=== PATIENT | female | born 1945 | race Caucasian/White ===

== ENCOUNTER 2018-06-13 20:38 | Inpatient (IN) | payer MEDICARE, OTHER ==
[~2018-06-13] VITALS: Ht 157.5 cm; Wt 69.4 kg
[2018-06-13] MEDS ORDERED: MIRT15TA PO (21:00)
[2018-06-13] MEDS ORDERED: RISP1TAB7 PO (21:00)
[2018-06-13] MEDS ORDERED: DOCU100C36 PO (21:00)
[2018-06-13] MEDS ORDERED: LORA-258 PO (21:00)
[2018-06-13] MEDS ORDERED: MAGN400O6 PO (21:00)
[2018-06-13] MEDS ORDERED: TRAM50TA2 PO (21:00)
[2018-06-13] MEDS ORDERED: ACET325T53 PO (21:00)
[2018-06-13] MEDS ORDERED: TEMA7.5C PO (21:00)
[2018-06-13] MEDS ORDERED: MAG-55 PO (21:00)
[2018-06-13] MEDS ORDERED: SENN-167 PO (21:00)
[2018-06-13] MEDS ORDERED: ALEN70TA45 PO (21:00)
[2018-06-13] MEDS ORDERED: LORA10TA7 PO (21:00)
[2018-06-13 21:08] LABS: BASOPHILS # (AUTO) 0.1 K/uL (0.0-8.0); EOSINOPHILS # (AUTO) 0.2 K/uL (0.0-0.7); EOSINOPHILS % (AUTO) 3.7 % (0.0-7.0); HEMATOCRIT 43.6 % (31.2-41.9); LYMPHOCYTES # (AUTO) 2.1 K/uL (20.0-40.0); LYMPHOCYTES % (AUTO) 31.8 % (20.5-51.5); MEAN CORPUSCULAR HEMOGLOBIN 32.8 uug (24.7-32.8); MEAN CORPUSCULAR HGB CONC 34 g/dL (32.3-35.6); MEAN CORPUSCULAR VOLUME 95.5 fL (75.5-95.3); MONOCYTES # (AUTO) 0.7 K/uL (2.0-10.0); MONOCYTES % (AUTO) 10.2 % (0.0-11.0); NEUTROPHILS # (AUTO) 3.5 K/uL (1.8-8.9); NEUTROPHILS % (AUTO) 53.3 % (38.5-71.5); PLATELET COUNT (AUTO) 228 K/uL (179-408); RED BLOOD CELL COUNT(AUTO) 4.57 MIL/uL (3.63-4.92); WHITE BLOOD COUNT (AUTO) 6.6 K/uL (3.8-11.8)
[2018-06-13 21:22] LABS: *AMPHETAMINE, URINE NEGATIVE (NEGATIVE); *BARBITURATE, URINE NEGATIVE (NEGATIVE); *CANNABINOID, URINE NEGATIVE (NEGATIVE); *COCCAINE, URINE NEGATIVE (NEGATIVE); *OPIATE, URINE NEGATIVE (NEGATIVE); *PHENCYCLIDINE SCREEN,URINE NEGATIVE (NEGATIVE)
[2018-06-13 21:30] LABS: ETHANOL < 3 MG/DL (0-0)
[2018-06-13 21:32] LABS: THYROID STIMULATING HORMONE 5.216 mIU/mL (0.358-3.740)
[2018-06-13 21:50] LABS: CARBON DIOXIDE 26 mmol/L (21-32); CHLORIDE 103 mmol/L (98-107); GLUCOSE 97 mg/dL (74-106); POTASSIUM 3.9 mmol/L (3.5-5.1); UREA NITROGEN, BLOOD 17 mg/dL (7-18)
[2018-06-13 21:56] LABS: ALANINE AMINOTRANSFERASE 23 U/L (14-59); ALKALINE PHOSPHATASE 79 U/L (50-136); ASPARTATE AMINOTRANSFERASE 11 U/L (15-37); BILIRUBIN,DIRECT < 0.1 mg/dL (0.0-0.2); BILIRUBIN,TOTAL 0.2 mg/dL (0.2-1.0); TOTAL PROTEIN, SERUM 7.5 g/dL (6.4-8.2)
[2018-06-13 21:58] LABS: ACETAMINOPHEN < 2.0 ug/mL (10-30)
[2018-06-14] VITALS: BP 128/78
[2018-06-14] MEDS ORDERED: ACETAMINOPHEN 325 MG TABLET PO PRN (01:00)
[2018-06-14] MEDS ORDERED: TEMAZEPAM 7.5 MG CAPSULE PO PRN ×2 (01:00→19:30)
[2018-06-14] MEDS ORDERED: MAG HYDROX/AL HYDROX/SIMETH 30 ML LIQUID UDC PO PRN (01:00)
[2018-06-14] MEDS ORDERED: MAGNESIUM HYDROXIDE 30 ML LIQUID UDC PO PRN (01:00)
[2018-06-14 02:25] VITALS: BP 128/78
[2018-06-14 11:15] VITALS: BP 102/64
[2018-06-14] MEDS ORDERED: Medication Not On Formulary EA (Mag Hydrox/Al Hydrox/Simeth (Maalox Max Strength Susp) 3 PO PRN (11:30)
[2018-06-14 15:18] VITALS: BP 103/68
[2018-06-14 15:43] LABS: *BILIRUBIN,URIN NEGATIVE (NEGATIVE); *BLOOD, URINE NEGATIVE (NEGATIVE); *CLARITY,URINE SLIGHTLY CLOUDY (CLEAR); *COLOR,URINE YELLOW (YELLOW); *KETONES,URINE NEGATIVE (NEGATIVE); *PROTEIN,URINE NEGATIVE (NEGATIVE); *UROBILINOGEN,URINE 0.2 E.U./dl (NORMAL); LEUKOCYTE ESTERASE ,URINE 2+ (NEGATIVE); NITRITE, URINE NEGATIVE (NEGATIVE); PH,URINE 6.5 (5.0-8.0); UGLUCOSE NEGATIVE (NEGATIVE)
[2018-06-14 15:56] LABS: BACTERIA,URINE FEW /HPF (NONE SEEN); RBC,URINE 0-3 /HPF (0-3); SQUAMOUS EPITHELIAL CELL,UR FEW /HPF (NONE SEEN); WBC,URINE 20-50 /HPF (0-3)
[2018-06-14] MEDS: DOCUSATE SODIUM 100 MG CAPSULE PO SCH (16:18)
[2018-06-14] MEDS ORDERED: LORAZEPAM 0.5 MG TABLET PO PRN (19:30)
[2018-06-14] MEDS: risperiDONE 1 MG TABLET PO SCH (19:53)
[2018-06-14 20:07] VITALS: BP 106/67
[2018-06-14] MEDS: MIRTAZAPINE 15 MG TABLET PO SCH (20:35)
[2018-06-14] MEDS: ATORVASTATIN 10 MG TABLET PO SCH (20:35)
[2018-06-14] MEDS: SENNOSIDES 1 TABLET PO SCH (20:37)
[2018-06-15] MEDS: LORATADINE 10 MG TABLET PO SCH (08:48)
[2018-06-15] MEDS: risperiDONE 1 MG TABLET PO SCH ×2 (08:49→17:01)
[2018-06-15 08:51] VITALS: BP 111/67
[2018-06-15] MEDS: DOCUSATE SODIUM 100 MG CAPSULE PO SCH ×2 (08:52→17:00)
[2018-06-15] MEDS: TRAMADOL HCL 50 MG TABLET PO PRN (10:30)
[2018-06-15] MEDS: CEPHALEXIN MONOHYDRATE 500 MG CAPSULE PO SCH ×2 (13:08→21:33)
[2018-06-15 15:36] VITALS: BP 118/83
[2018-06-15 19:14] VITALS: BP 104/59
[2018-06-15] MEDS: MIRTAZAPINE 15 MG TABLET PO SCH (20:00)
[2018-06-15] MEDS: ATORVASTATIN 10 MG TABLET PO SCH (20:00)
[2018-06-15] MEDS: SENNOSIDES 1 TABLET PO SCH (20:02)
[2018-06-15] MEDS: BENZOCAINE/MENTH/CETYLPYRD LOZENGE MM PRN (21:33)
[2018-06-16 03:26] VITALS: BP 110/68
[2018-06-16] MEDS: CEPHALEXIN MONOHYDRATE 500 MG CAPSULE PO SCH ×3 (05:01→21:18)
[2018-06-16] MEDS: BENZOCAINE/MENTH/CETYLPYRD LOZENGE MM PRN (06:39)
[2018-06-16 08:00] VITALS: BP 100/70
[2018-06-16] MEDS: risperiDONE 1 MG TABLET PO SCH ×2 (08:43→16:09)
[2018-06-16] MEDS: LORATADINE 10 MG TABLET PO SCH (08:43)
[2018-06-16] MEDS: DOCUSATE SODIUM 100 MG CAPSULE PO SCH ×2 (08:43→16:06)
[2018-06-16 11:48] VITALS: BP 113/74
[2018-06-16] MEDS: LORAZEPAM 0.5 MG TABLET PO PRN (14:55)
[2018-06-16 15:52] VITALS: BP 121/72
[2018-06-16 19:46] VITALS: BP 103/70
[2018-06-16] MEDS: MIRTAZAPINE 15 MG TABLET PO SCH (20:20)
[2018-06-16] MEDS: ATORVASTATIN 10 MG TABLET PO SCH (20:20)
[2018-06-16] MEDS: SENNOSIDES 1 TABLET PO SCH (20:26)
[2018-06-17] MEDS: TRAMADOL HCL 50 MG TABLET PO PRN ×2 (03:06→17:23)
[2018-06-17] MEDS: BENZOCAINE/MENTH/CETYLPYRD LOZENGE MM PRN (03:08)
[2018-06-17] MEDS: CEPHALEXIN MONOHYDRATE 500 MG CAPSULE PO SCH ×3 (05:08→21:36)
[2018-06-17 07:57] VITALS: BP 103/68
[2018-06-17] MEDS: risperiDONE 1 MG TABLET PO SCH ×2 (08:04→16:04)
[2018-06-17] MEDS: DOCUSATE SODIUM 100 MG CAPSULE PO SCH ×2 (08:05→16:04)
[2018-06-17] MEDS: LORATADINE 10 MG TABLET PO SCH (08:05)
[2018-06-17] MEDS: LORAZEPAM 0.5 MG TABLET PO PRN (10:53)
[2018-06-17 11:19] VITALS: BP 101/68
[2018-06-17 15:36] VITALS: BP 102/58
[2018-06-17 20:08] VITALS: BP 94/62
[2018-06-17] MEDS: MIRTAZAPINE 15 MG TABLET PO SCH (20:39)
[2018-06-17] MEDS: SENNOSIDES 1 TABLET PO SCH (20:39)
[2018-06-17] MEDS: ATORVASTATIN 10 MG TABLET PO SCH (20:39)
[2018-06-18] MEDS: BENZOCAINE/MENTH/CETYLPYRD LOZENGE MM PRN ×3 (00:39→21:34)
[2018-06-18] MEDS: CEPHALEXIN MONOHYDRATE 500 MG CAPSULE PO SCH (06:11)
[2018-06-18 06:14] LABS: BASOPHILS # (AUTO) 0.1 K/uL (0.0-8.0); BASOPHILS % (AUTO) 0.7 % (0.0-2.0); EOSINOPHILS # (AUTO) 0.3 K/uL (0.0-0.7); EOSINOPHILS % (AUTO) 2.9 % (0.0-7.0); HEMATOCRIT 40.1 % (31.2-41.9); HEMOGLOBIN 13.9 g/dL (10.9-14.3); LYMPHOCYTES % (AUTO) 20.3 % (20.5-51.5); MEAN CORPUSCULAR HEMOGLOBIN 32.5 uug (24.7-32.8); MEAN CORPUSCULAR HGB CONC 35 g/dL (32.3-35.6); MEAN CORPUSCULAR VOLUME 93.4 fL (75.5-95.3); MONOCYTES # (AUTO) 0.9 K/uL (2.0-10.0); MONOCYTES % (AUTO) 9.6 % (0.0-11.0); NEUTROPHILS # (AUTO) 6.5 K/uL (1.8-8.9); NEUTROPHILS % (AUTO) 66.5 % (38.5-71.5); PLATELET COUNT (AUTO) 217 K/uL (179-408); RED BLOOD CELL COUNT(AUTO) 4.29 MIL/uL (3.63-4.92); WHITE BLOOD COUNT (AUTO) 9.7 K/uL (3.8-11.8)
[2018-06-18] MEDS ORDERED: ALENDRONATE SODIUM 70 MG TABLET PO SCH (06:30)
[2018-06-18 06:31] LABS: ALANINE AMINOTRANSFERASE 19 U/L (14-59); ALKALINE PHOSPHATASE 72 U/L (50-136); ASPARTATE AMINOTRANSFERASE 12 U/L (15-37); BILIRUBIN,TOTAL 0.6 mg/dL (0.2-1.0); CARBON DIOXIDE 26 mmol/L (21-32); CHLORIDE 104 mmol/L (98-107); CREATININE 0.9 mg/dL (0.6-1.3); GLUCOSE 97 mg/dL (74-106); MAGNESIUM 1.8 mg/dL (1.8-2.4); PHOSPHOROUS 3.5 mg/dL (2.5-4.9); TOTAL PROTEIN, SERUM 6.7 g/dL (6.4-8.2); UREA NITROGEN, BLOOD 16 mg/dL (7-18)
[2018-06-18 06:36] VITALS: BP 116/66
[2018-06-18] MEDS: DOCUSATE SODIUM 100 MG CAPSULE PO SCH ×2 (09:00→16:20)
[2018-06-18] MEDS: LORATADINE 10 MG TABLET PO SCH (09:03)
[2018-06-18] MEDS: risperiDONE 1 MG TABLET PO SCH ×2 (09:03→16:20)
[2018-06-18 11:16] VITALS: BP 109/75
[2018-06-18] MEDS: LEVOFLOXACIN 500 MG TABLET PO SCH (11:42)
[2018-06-18 15:24] VITALS: BP 129/85
[2018-06-18] MEDS: TRAMADOL HCL 50 MG TABLET PO PRN (17:27)
[2018-06-18 20:00] VITALS: BP 114/66
[2018-06-18] MEDS: MIRTAZAPINE 15 MG TABLET PO SCH (20:36)
[2018-06-18] MEDS: ATORVASTATIN 10 MG TABLET PO SCH (20:36)
[2018-06-18] MEDS: SENNOSIDES 1 TABLET PO SCH (20:39)
[2018-06-19] MEDS: TRAMADOL HCL 50 MG TABLET PO PRN ×2 (03:42→17:10)
[2018-06-19 08:00] VITALS: BP 100/72
[2018-06-19] MEDS: risperiDONE 1 MG TABLET PO SCH ×2 (09:01→17:10)
[2018-06-19] MEDS: LORATADINE 10 MG TABLET PO SCH (09:01)
[2018-06-19] MEDS: DOCUSATE SODIUM 100 MG CAPSULE PO SCH ×2 (09:01→17:10)
[2018-06-19] MEDS: LEVOFLOXACIN 500 MG TABLET PO SCH (11:53)
[2018-06-19] MEDS: GUAIFENESIN/DEXTROMETHORPHAN TAB.SR.12H PO SCH ×2 (13:06→21:06)
[2018-06-19 16:00] VITALS: BP 113/57
[2018-06-19 20:16] VITALS: BP 108/68
[2018-06-19] MEDS: SENNOSIDES 1 TABLET PO SCH (21:00)
[2018-06-19] MEDS: ATORVASTATIN 10 MG TABLET PO SCH (21:04)
[2018-06-19] MEDS: MIRTAZAPINE 15 MG TABLET PO SCH (21:04)
[2018-06-20] MEDS: TRAMADOL HCL 50 MG TABLET PO PRN ×2 (07:00→16:59)
[2018-06-20 07:30] VITALS: BP 97/64
[2018-06-20] MEDS: GUAIFENESIN/DEXTROMETHORPHAN TAB.SR.12H PO SCH ×2 (08:40→20:50)
[2018-06-20] MEDS: LORATADINE 10 MG TABLET PO SCH (08:40)
[2018-06-20] MEDS: risperiDONE 1 MG TABLET PO SCH ×2 (08:40→16:47)
[2018-06-20] MEDS: DOCUSATE SODIUM 100 MG CAPSULE PO SCH ×2 (08:40→16:47)
[2018-06-20] MEDS: LORAZEPAM 0.5 MG TABLET PO PRN (09:32)
[2018-06-20] MEDS: LEVOFLOXACIN 500 MG TABLET PO SCH (12:23)
[2018-06-20 16:57] VITALS: BP 100/78
[2018-06-20] MEDS: SENNOSIDES 1 TABLET PO SCH (20:49)
[2018-06-20] MEDS: ATORVASTATIN 10 MG TABLET PO SCH (20:50)
[2018-06-20 20:51] VITALS: BP 101/70
[2018-06-20] MEDS ORDERED: MIRTAZAPINE 15 MG TABLET PO SCH (21:00)
[2018-06-21] MEDS: TRAMADOL HCL 50 MG TABLET PO PRN (06:46)
[2018-06-21 07:30] VITALS: BP 103/73
[2018-06-21] MEDS: LORATADINE 10 MG TABLET PO SCH (08:24)
[2018-06-21] MEDS: DOCUSATE SODIUM 100 MG CAPSULE PO SCH (08:24)
[2018-06-21] MEDS: risperiDONE 1 MG TABLET PO SCH (08:24)
[2018-06-21] MEDS: GUAIFENESIN/DEXTROMETHORPHAN TAB.SR.12H PO SCH (08:27)
[2018-06-21] MEDS: LEVOFLOXACIN 500 MG TABLET PO SCH (10:32)
== END 2018-06-21 15:00 | DRG 885 ==
LOC: ER 20:42 → GPSOV 23:22 → GPS 06-14 22:57 → GPSOV 06-15 15:00 → GPS 06-18 22:14
PROVIDERS: ADMIT Psychiatry & Neurology Psychiatry; ATTEND Nurse Practitioner Acute Care
DX: F32.3 Major depressive disorder, single episode, severe with psychotic features (principal); N39.0 Urinary tract infection, site not specified; B96.5 Pseudomonas (aeruginosa) (mallei) (pseudomallei) as the cause of diseases classified elsewhere; E78.5 Hyperlipidemia, unspecified; E03.9 Hypothyroidism, unspecified; Z85.038 Personal history of other malignant neoplasm of large intestine; M79.7 Fibromyalgia; M81.0 Age-related osteoporosis without current pathological fracture; Z79.899 Other long term (current) drug therapy; I70.0 Atherosclerosis of aorta
CPT/HCPCS: 36415; 71045; 80307; 83735; 84100; 84443; 85025; 87077; 87086; 93005; A4663; G0480; G0480-TC; J8499